=== PATIENT | female | born 1950 | race Caucasian/White ===

== ENCOUNTER 2018-07-10 10:21 | Emergency (ER) | payer OTHER ==
[~2018-07-10] VITALS: Ht 162.6 cm; Wt 90.7 kg
[~2018-07-10 10:21] MED LIST: COZAAR50 MG PO
[2018-07-10] MEDS ORDERED: AGRYLIN0.5 M1 (10:53)
== END 2018-07-10 18:10 | disposition home or self-care (01) ==
LOC: ER 10:21
DX: R06.2 Wheezing (principal); J40 Bronchitis, not specified as acute or chronic